=== PATIENT | male | born 1955 | race Caucasian/White ===

== ENCOUNTER 2016-12-29 03:01 | Emergency (ER) | payer BC, OTHER ==
[~2016-12-29] VITALS: Ht 185.4 cm; Wt 82.6 kg
[2016-12-29 06:06] VITALS: BP 144/93
[2016-12-29 06:16] LABS: Hepatitis B Surface Antibody Positive
== END 2016-12-29 06:11 | disposition home or self-care (01) ==
LOC: ER 03:01
DX: Z77.21 Contact with and (suspected) exposure to potentially hazardous body fluids (principal); F17.210 Nicotine dependence, cigarettes, uncomplicated; Z87.442 Personal history of urinary calculi
CPT/HCPCS: 36415; 86703; 86706; 86803; 87340

== ENCOUNTER 2024-03-07 16:20 | Emergency (ER) | payer OTHER ==
[~2024-03-07] VITALS: Ht 185.4 cm; Wt 84.5 kg
[2024-03-07 18:44] LABS: Basophils # (auto) 0.1 10 ^3/uL (0-0.2); Basophils % (auto) 1.3 % (0.0-2.0); Eosinophils # (auto) 0.1 10 ^3/uL (0-0.8); Hematocrit 46.5 % (41.0-53.0); Hemoglobin 16.1 g/dL (13.5-17.5); Lymphocytes % (auto) 30.2 % (10.0-50.0); Mean Corpuscular Hemoglobin 30.7 pg (28.0-32.0); Mean Corpuscular Hgb Conc. 34.7 g/dL (32.0-36.0); Mean Corpuscular Volume 88.4 fL (80.0-100.0); Monocytes # (auto) 0.5 10 ^3/uL (0-1.3); Monocytes % (auto) 5.3 % (0.0-12.0); Neutrophils # (auto) 6.2 10 ^3/uL (1.6-8.6); Neutrophils % (auto) 62.2 % (37.0-80.0); Platelet Count (auto) 214 10^3/uL (140-450); Red Blood Cells 5.26 10^6/uL (4.5-5.90); Red Cell Distribution Width 14.6 % (11.8-14.3)
[2024-03-07 19:03] LABS: Alanine Aminotransferase 49 U/L (7-40); Albumin 4.8 g/dL (3.2-4.8); Alkaline Phosphatase 68 U/L (46-116); Anion Gap 5 (5-15); Aspartate Aminotransferase 29 U/L (13-40); BUN/Creatinine Ratio 9.9 (10.0-20.0); Bilirubin, Total 0.7 mg/dL (0.2-1.0); Blood Urea Nitrogen 12 mg/dL (9-23); Calcium 9.9 mg/dL (8.7-10.4); Carbon Dioxide 28 mmol/L (20-30); Chloride 105 mmol/L (98-107); Glucose 168 mg/dL (74-106); Potassium 3.4 mmol/L (3.5-5.1); Sodium 138 mmol/L (136-145); Total Protein 7.3 g/dL (5.7-8.2)
[2024-03-07 20:51] VITALS: BP 117/72; PULSE 97; RESP 16; TEMP 98.6; O2SAT 95
[2024-03-07] MEDS: DexAMETHasone SOD PHOS 10MG/1ML VIAL INJ IM ONE (20:54)
== END 2024-03-07 21:45 | disposition home or self-care (01) ==
LOC: ER 16:20
DX: M51.36 Other intervertebral disc degeneration, lumbar region (principal); M21.372 Foot drop, left foot; I10 Essential (primary) hypertension; F17.210 Nicotine dependence, cigarettes, uncomplicated; Z87.442 Personal history of urinary calculi
CPT/HCPCS: 36415; 70450; 72131; 80053; 82962; 85025; 93005; 96372; 99285; J1100